=== PATIENT | female | born 2000 | race Caucasian/White ===

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

== ENCOUNTER 2022-04-26 15:39 | Emergency (ER) | payer BC ==
[~2022-04-26] VITALS: Ht 162.6 cm; Wt 86.0 kg
[2022-04-26 15:42] VITALS: BP 109/85
[2022-04-26] MEDS ORDERED: KETOROLAC 30 MG/ML VIAL IM ONE (15:50)
[2022-04-26 15:59] LABS: APPEARANCE,URINE CLEAR (CLEAR); BILIRUBIN,URINE NEGATIVE (NEGATIVE); BLOOD, URINE NEGATIVE (NEGATIVE); COLOR,URINE YELLOW (YELLOW); LEUKOCYTE ESTERASE ,URINE NEGATIVE (NEGATIVE); NITRITE, URINE NEGATIVE (NEGATIVE); PH,URINE 7.5 (5.0-9.0); UGLUCOSE NEGATIVE (NEGATIVE)
[2022-04-26] MEDS ORDERED: LID5T TP (17:01)
[2022-04-26] MEDS ORDERED: CYCL-711 PO (17:01)
[2022-04-26 17:09] VITALS: BP 109/85
== END 2022-04-26 17:40 | disposition home or self-care (01) ==
LOC: MED 15:39
DX: S39.012A Strain of muscle, fascia and tendon of lower back, initial encounter (principal); M25.551 Pain in right hip; Z79.899 Other long term (current) drug therapy; X58.XXXA Exposure to other specified factors, initial encounter; Y93.89 Activity, other specified; Y92.89 Other specified places as the place of occurrence of the external cause; Y99.8 Other external cause status
CPT/HCPCS: 72100; 72220; 73502; 81003; 81025; 96372; 99284; J1885